=== PATIENT | male | born 1990 | race Caucasian/White ===

== ENCOUNTER 2023-06-10 14:27 | Emergency (ER) | payer OTHER ==
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
[2023-06-10] MEDS ORDERED: BACIGUENT PACKET ONE (15:20)
[2023-06-10] MEDS ORDERED: BACIGUENT PACKET TP ONE (15:30)
[2023-06-10 15:43] VITALS: BP 142/88; PULSE 99; RESP 18; TEMP 99.2; O2SAT 99
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
== END 2023-06-10 17:39 | disposition home or self-care (01) ==
LOC: ED 14:27
DX: Z04.71 Encounter for examination and observation following alleged adult physical abuse (principal); S80.212A Abrasion, left knee, initial encounter; S90.511A Abrasion, right ankle, initial encounter; S90.811A Abrasion, right foot, initial encounter; S40.812A Abrasion of left upper arm, initial encounter; S40.811A Abrasion of right upper arm, initial encounter; Y04.2XXA Assault by strike against or bumped into by another person, initial encounter; Y92.512 Supermarket, store or market as the place of occurrence of the external cause; Z72.0 Tobacco use
CPT/HCPCS: 70450; 71045; 73560; 73610; 99283; A9270-GY